=== PATIENT | female | born 1985 | race Caucasian/White ===

== ENCOUNTER 2017-03-27 18:10 | Emergency (ER) | payer MEDICAID ==
[2011-05-09 02:08] VITALS: BMI 32.3
[2017-03-27 18:53] LABS: BASOPHILS 0.3 % (0-2); HEMATOCRIT 37.7 % (36.0-48.0); HEMOGLOBIN 12.8 g/dL (12-16); IMMATURE GRANULOCYTES 0.2 % (0-5); LYMPHOCYTES 39.6 % (15-50); MCH 29.3 pg (26.0-34.0); MCV 86.3 fL (80.0-100.0); MEAN PLATELET VOLUME 9.8 fL (7.4-10.4); MONOCYTES 7.6 % (2-11); NEUTROPHILS 51.3 % (40-80); PLATELET COUNT 236 10x3/uL (130-400); RBC 4.37 10x6/uL (4.00-5.40); RDW 12.2 % (11.5-14.5); WBC 5.9 10x3/uL (4.8-10.8)
[2017-03-27 18:58] LABS: APPEARANCE CLEAR (CLEAR); BILIRUBIN NEGATIVE (NEGATIVE); COLOR STRAW (YELLOW); GLUCOSE NEGATIVE (NEGATIVE); KETONE NEGATIVE (NEGATIVE); NITRITE NEGATIVE (NEGATIVE); PH 5.5 (5.0-6.0); PROTEIN NEGATIVE (NEGATIVE); SPECIFIC GRAVITY 1.005 (1.005-1.020); UROBILINOGEN NORMAL (NORMAL)
[2017-03-27 19:00] LABS: HCG SERUM NEGATIVE (NEGATIVE)
[2017-03-27 19:03] LABS: ALBUMIN 3.6 g/dL (3.4-5.0); ALKALINE PHOSPHATASE 72 U/L (46-116); ALT (SGPT) 40 U/L (10-68); BILIRUBIN - TOTAL 0.28 mg/dL (0.2-1.3); CALC OSMOLALITY 274 mosm/kg (275-300); CALCIUM 8.9 mg/dL (8.5-10.1); CHLORIDE - SERUM 103 mmol/L (98-107); CREATININE - SERUM 0.6 mg/dL (0.6-1.3); GLUCOSE 91 mg/dL (74-106); POTASSIUM - SERUM 3.7 mmol/L (3.5-5.1); PROTEIN - SERUM 7.7 g/dL (6.4-8.2); SODIUM 139 mmol/L (136-145); UREA NITROGEN 5 mg/dL (7-18); eGFR NON AFRICAN AMERICAN > 90 mL/min (90-120)
== END 2017-03-27 19:31 | disposition home or self-care (01) ==
LOC: D.ER 18:10
PROVIDERS: Emergency Medicine
DX: R10.9 Unspecified abdominal pain (principal); K21.9 Gastro-esophageal reflux disease without esophagitis

== ENCOUNTER 2018-10-15 16:03 | Emergency (ER) | payer OTHER ==
[2018-10-15 16:13] VITALS: BMI 27.5
[2018-10-15 16:53] LABS: BASOPHILS 0.2 % (0-2); EOSINOPHILS 0.1 % (0-7); HEMATOCRIT 37.9 % (36.0-48.0); HEMOGLOBIN 13.2 g/dL (12-16); IMMATURE GRANULOCYTES 0.2 % (0-5); LYMPHOCYTES 12.1 % (15-50); MCH 28.9 pg (26.0-34.0); MCHC 34.8 g/dL (31.0-37.0); MCV 83.1 fL (80.0-100.0); MONOCYTES 6.6 % (2-11); NEUTROPHILS 80.8 % (40-80); PLATELET COUNT 276 10x3/uL (130-400); RBC 4.56 10x6/uL (4.00-5.40); RDW 12.7 % (11.5-14.5); WBC 9.6 10x3/uL (4.8-10.8)
[2018-10-15 17:17] LABS: ALBUMIN 4.2 g/dL (3.4-5.0); ANION GAP 14.3 mmol/L (8-16); BILIRUBIN - TOTAL 0.79 mg/dL (0.2-1.3); CALCIUM 9.4 mg/dL (8.5-10.1); CARBON DIOXIDE 27.3 mmol/L (21.0-32.0); POTASSIUM - SERUM 3.6 mmol/L (3.5-5.1); PROTEIN - SERUM 8.4 g/dL (6.4-8.2)
[2018-10-15 17:37] LABS: AMORPHOUS SEDIMENT >1+ /lpf (NONE SEEN); APPEARANCE CLOUDY (CLEAR); BILIRUBIN NEGATIVE (NEGATIVE); COLOR YELLOW (YELLOW); EPITHELIAL CELLS OCC /hpf (0-5); GLUCOSE NEGATIVE (NEGATIVE); HCG URINE NEGATIVE (NEGATIVE); KETONE NEGATIVE (NEGATIVE); NITRITE NEGATIVE (NEGATIVE); PROTEIN TRACE mg/dL (NEGATIVE); RED CELLS - URINE RARE /hpf (0-5); SPECIFIC GRAVITY 1.025 (1.005-1.020); UROBILINOGEN NORMAL (NORMAL); WHITE CELLS - URINE NSEEN /hpf (0-5)
[2018-10-15 17:48] LABS: UDS - AMPHET POSITIVE QUAL (NEGATIVE); UDS - BARB NEGATIVE QUAL (NEGATIVE); UDS - BENZO POSITIVE QUAL (NEGATIVE); UDS - COCAINE NEGATIVE QUAL (NEGATIVE); UDS - OPIATE NEGATIVE QUAL (NEGATIVE); UDS - PCP NEGATIVE QUAL (NEGATIVE); UDS - THC POSITIVE QUAL (NEGATIVE)
[2018-10-15 18:48] VITALS: BP 155/105
[2018-10-18 11:12] LABS: HEPATITIS C ANTIBODY >11.0 S/CO RAT (0.0-0.9)
== END 2018-10-15 18:48 | disposition home or self-care (01) ==
LOC: D.ER 16:03
PROVIDERS: Family Medicine
DX: F19.10 Other psychoactive substance abuse, uncomplicated (principal)

== ENCOUNTER 2018-10-17 06:14 | Emergency (ER) | payer OTHER ==
[2018-10-17 06:28] VITALS: BMI 27.5
[2018-10-17] MEDS ORDERED: VIBRAMYCIN 100100 MG PO (07:16)
[2018-10-17] MEDS ORDERED: BUPRENORPHINE HC8 MG SL (07:30)
[2018-10-17] MEDS ORDERED: VALIUM10 MG PO (07:31)
== END 2018-10-17 10:16 | disposition home or self-care (01) ==
LOC: D.ER
DX: T76.21XA Adult sexual abuse, suspected, initial encounter (principal)

== ENCOUNTER 2018-10-17 06:25 | Emergency (ER) | payer OTHER ==
[2018-10-17 06:28] VITALS: BMI 27.5
[2018-10-17 07:09] LABS: BASOPHILS 0.2 % (0-2); EOSINOPHILS 1.2 % (0-7); HEMATOCRIT 36.3 % (36.0-48.0); HEMOGLOBIN 12.7 g/dL (12-16); IMMATURE GRANULOCYTES 0.1 % (0-5); LYMPHOCYTES 19.7 % (15-50); MCH 28.9 pg (26.0-34.0); MCV 82.5 fL (80.0-100.0); MEAN PLATELET VOLUME 10.1 fL (7.4-10.4); MONOCYTES 9.2 % (2-11); NEUTROPHILS 69.6 % (40-80); PLATELET COUNT 255 10x3/uL (130-400); RDW 12.7 % (11.5-14.5); WBC 8.7 10x3/uL (4.8-10.8)
[2018-10-17] MEDS ORDERED: VIBRAMYCIN 100100 MG PO (07:16)
[2018-10-17] MEDS ORDERED: BUPRENORPHINE HC8 MG SL (07:30)
[2018-10-17] MEDS ORDERED: VALIUM10 MG PO (07:31)
[2018-10-17 07:43] LABS: ALBUMIN 3.9 g/dL (3.4-5.0); ALKALINE PHOSPHATASE 94 U/L (46-116); ALT (SGPT) 20 U/L (10-68); BILIRUBIN - TOTAL 0.88 mg/dL (0.2-1.3); CALC OSMOLALITY 269 mosm/kg (275-300); CALCIUM 8.9 mg/dL (8.5-10.1); CARBON DIOXIDE 29.1 mmol/L (21.0-32.0); CHLORIDE - SERUM 100 mmol/L (98-107); CREATININE - SERUM 0.8 mg/dL (0.6-1.3); GLUCOSE 99 mg/dL (74-106); POTASSIUM - SERUM 3.5 mmol/L (3.5-5.1); PROTEIN - SERUM 7.8 g/dL (6.4-8.2); SODIUM 136 mmol/L (136-145); UREA NITROGEN 6 mg/dL (7-18); eGFR NON AFRICAN AMERICAN 88 mL/min (90-120)
[2018-10-17 07:59] LABS: CREATINE KINASE 222 UL (21-215)
[2018-10-17 08:15] LABS: CKMB 1.4 U/L (0.0-3.6)
[2018-10-17 08:48] LABS: HCG URINE NEGATIVE (NEGATIVE)
[2018-10-17 08:54] LABS: UDS - AMPHET POSITIVE QUAL (NEGATIVE); UDS - BARB NEGATIVE QUAL (NEGATIVE); UDS - BENZO POSITIVE QUAL (NEGATIVE); UDS - COCAINE NEGATIVE QUAL (NEGATIVE); UDS - OPIATE NEGATIVE QUAL (NEGATIVE); UDS - PCP NEGATIVE QUAL (NEGATIVE); UDS - THC NEGATIVE QUAL (NEGATIVE)
[2018-10-17 09:00] LABS: APPEARANCE HAZY (CLEAR); BILIRUBIN NEGATIVE (NEGATIVE); COLOR STRAW (YELLOW); GLUCOSE NEGATIVE (NEGATIVE); KETONE NEGATIVE (NEGATIVE); NITRITE NEGATIVE (NEGATIVE); PROTEIN TRACE mg/dL (NEGATIVE); UROBILINOGEN NORMAL (NORMAL)
[2018-10-17 09:01] LABS: BACTERIA FEW /hpf (NONE SEEN); RED CELLS - URINE 0-5 /hpf (0-5)
[2018-10-17 10:15] VITALS: BP 137/89
== END 2018-10-17 10:16 | disposition home or self-care (01) ==
LOC: D.ER 06:25
PROVIDERS: Emergency Medicine; Family Medicine
DX: T76.21XA Adult sexual abuse, suspected, initial encounter (principal); T24.001A Burn of unspecified degree of unspecified site of right lower limb, except ankle and foot, initial encounter; T31.0 Burns involving less than 10% of body surface; X18.XXXA Contact with other hot metals, initial encounter; Y93.89 Activity, other specified; Y92.89 Other specified places as the place of occurrence of the external cause; L03.115 Cellulitis of right lower limb

== ENCOUNTER 2019-07-26 01:29 | Inpatient (IN) | payer OTHER ==
[~2019-07-26] VITALS: Ht 167.6 cm; Wt 88.5 kg
[2019-07-26] VITALS (8 sets, daily range): BP systolic 97–123; BP diastolic 54–82; Ht 167.6 cm; Wt 88.5 kg
[~2019-07-26 01:29] MED LIST: BUPRENORPHINE HC8 MG SL; VALIUM10 MG PO; VIBRAMYCIN 100100 MG PO
[2019-07-26] MEDS ORDERED: BUPRENORPHINE HC8 MG SL (02:12)
[2019-07-26] MEDS ORDERED: ZOLOFT50 MG PO (02:14)
[2019-07-26] MEDS ORDERED: OMEPRAZOLE20 M1 PO (02:15)
[2019-07-26 02:25] LABS: HEMATOCRIT 28.5 % (36.0-48.0); HEMOGLOBIN 9.3 g/dL (12-16); MCH 27.4 pg (26.0-34.0); MCHC 32.6 g/dL (31.0-37.0); MCV 83.8 fL (80.0-100.0); MEAN PLATELET VOLUME 9.3 fL (7.4-10.4); RBC 3.4 10x6/uL (4.00-5.40); RDW 14.8 % (11.5-14.5); WBC 8.9 10x3/uL (4.8-10.8)
[2019-07-26 02:31] LABS: BILIRUBIN NEGATIVE (NEGATIVE); GLUCOSE NEGATIVE (NEGATIVE); KETONE NEGATIVE (NEGATIVE); NITRITE NEGATIVE (NEGATIVE); SPECIFIC GRAVITY 1.015 (1.005-1.020); UROBILINOGEN NORMAL (NORMAL)
[2019-07-26 02:38] LABS: UDS - AMPHET NEGATIVE QUAL (NEGATIVE); UDS - BARB NEGATIVE QUAL (NEGATIVE); UDS - BENZO NEGATIVE QUAL (NEGATIVE); UDS - COCAINE NEGATIVE QUAL (NEGATIVE); UDS - OPIATE NEGATIVE QUAL (NEGATIVE); UDS - PCP NEGATIVE QUAL (NEGATIVE); UDS - THC NEGATIVE QUAL (NEGATIVE)
--- NOTE | 2019-07-26 05:23 | NUR ---
rec'd in room 1278 via bed from recovery, alert and oriented x 3, moving upper extremities but states lower extremities still feel "numb" lr infusing @125ml/hr via 18 guage left hand, fundus firm, u-1, lochia small, lut dsg d/i, scd's leonora lower extremities, denies discomfort at this time.
--- NOTE | 2019-07-26 06:32 | NUR ---
sitting up w/ infant, holding and attempting
--- NOTE | 2019-07-26 07:08 | NUR ---
RECEIVED PT SITTING UP IN BED. HOLDS INFANT WITH MUCH WARMTH SHOWN. VSS. HRRR WITHOUT AUDIBLE MURMUR. BBS CLEAR. BS X 4. ADOMEN SOFT/NON-DISTNDED. ABDOMINAL DRESSING DRY WITHOUT DRAINAGE NOTED. FUNDUS FIRM AT U/U. RUBRA LOCHIA MOD AMT. PERICARE DONE. PERIPAD CHANGED. NO CLOTS NOTED. NEG HOMANS' SIGN. PPP. NO EDEMA NOTED TO BLE. SCDS ON. PT C/O INCISIONAL PAIN OF "7" ON 0-10 PAIN SCALE. PIV OF NS WITH PITOCIN INFUSING AT 125 ML/HR. SITE CLEAR. QUIGLEY TO GRAVITY DRAINING DARK, YELLOW URINE. SR UP X 2. CALL LIGHT IN REACH.
--- NOTE | 2019-07-26 07:45 | NUR ---
DILAUDID MEAT SEAFOOD ASSOCIATE STARTED ORDERED. 0.4 MG LOADING DOSE ALSO GIVEN FOR PT C/O INCISIONAL PAIN OF "7" ON 0-10 PAIN SCALE. TORADOL 30 MG GIVEN SIVP OVER 2 MINUTES. PT INSTRUCTED ON MED. VERBALIZES UNDERSTANDING.
--- NOTE | 2019-07-26 08:20 | NUR ---
PT SITTING UP IN BED. STATES PAIN NOW "3" ON 0-10 PAIN SCALE. ASSISTED PT WITH TECHNIQUE. DEMONSTRATES UNDERSTANDING.
--- NOTE | 2019-07-26 10:22 | NUR ---
PT SITTING UP IN BED. VSS. ABDOMINAL DRESSING DRY WITHOUT DRAINAGE. DENIES NEEDS. FRESH ICE WATER PROVIDED. VISITOR POLICY EXPLAINED TO PT AND FAMILY MEMBER IN ROOM. ALL VERBALIZE UNDERSTANDING.
--- NOTE | 2019-07-26 12:00 | NUR ---
PT SITTING UP IN BED. CONSUMING CLEAR LIQUID DIET. ANI WELL.
[2019-07-26 12:19] LABS: BASOPHILS 0.1 % (0-2); EOSINOPHILS 0.5 % (0-7); HEMATOCRIT 26.2 % (36.0-48.0); HEMOGLOBIN 8.4 g/dL (12-16); IMMATURE GRANULOCYTES 0.4 % (0-5); LYMPHOCYTES 17.3 % (15-50); MCH 26.8 pg (26.0-34.0); MCHC 32.1 g/dL (31.0-37.0); MCV 83.7 fL (80.0-100.0); MEAN PLATELET VOLUME 9.4 fL (7.4-10.4); MONOCYTES 8.3 % (2-11); NEUTROPHILS 73.4 % (40-80); PLATELET COUNT 157 10x3/uL (130-400); RBC 3.13 10x6/uL (4.00-5.40); RDW 14.7 % (11.5-14.5); WBC 10.1 10x3/uL (4.8-10.8)
--- NOTE | 2019-07-26 14:18 | NUR ---
I/O COMPLETED. FUNDUS FIRM AT U/1. JOCELIN VALENTIN AMT. PERIPAD CHANGED. PERICARE DONE. ABDOMINAL DRESSING WITH 2 SMALL CIRCLED AREAS OF SEROSANGUINOUS DRAINAGE NOTED. PT REPOSITIONS PER SELF IN BED AFTER MUCH ENCOURAGEMENT TO DO SO. SCDS BACK ON BLE PT STATES TOOK THEM OFF BECAUSE "I WAS HOT". PT INSTRUCTED ON PURPOSE OF SCDS. VERBALIZES UNDERSTANDING. FRESH ICE PACK TO INCISION. ICE WATER, SPRITE AND CUP OF ICE PROVIDED TO PT AND ENCOURAGED TO CONSUME. PT QUICKLY FALLS BACK ASLEEP AFTER ASSESSMENT. SR UP X 2. CALL LIGHT IN REACH.
--- NOTE | 2019-07-26 15:27 | NUR ---
PT SITTING UP IN BED. VSS. SO AT BEDSIDE. PT DENIES C/O OR NEEDS.
--- NOTE | 2019-07-26 16:58 | NUR ---
PT SITTING UP IN BED. CONSUMING REGULAR DIET. PIV CONVERTED TO SALINE LOCK. PT INSTRUCTED TO NOTIFY NURSE WHEN FINISHED WITH MEAL. VERBALIZES UNDERSTANDING.
--- NOTE | 2019-07-26 18:15 | NUR ---
QUIGLEY DC'D WITH 350 ML OF DARK, YELLOW URINE NOTED IN BAG. PT OOB AND AMB TO BR. STEADY GAIT.
--- NOTE | 2019-07-26 19:00 | NUR ---
REPORT RECEIVED FROM JAMEL VELEZ
--- NOTE | 2019-07-26 19:09 | NUR ---
PT CALLS ON LIGHT. REQUESTS PAIN MED. C/O INCISIONAL PAIN OF "7" ON 0-10 PAIN SCALE. NORCO 10/325 GIVEN PO ORDERED. PT STATES "AM I GETTING TWO OF THOSE". PT INSTRUCTED ON MEDS ORDERED FOR PAIN; EMAR SHARED WITH PT. PT VERBALIZES UNDERSTANDING. STATES "HE SAID HE WAS GOING TO TAKE REALLY GOOD CARE OF ME".
--- NOTE | 2019-07-26 20:30 | NUR ---
PATIENT SITTING UP IN BED. STATES PAIN 8 OUT OF 10. ASSESSMENT DONE. RESPIRATIONS AT EASE. LUNG SOUNDS CLEAR IN ALL MCCOY. HEART REGULAR RATE AND RHYTHM. ABDOMEN SOFT, NON DISTENDED. BOWEL SOUNDS PRESENT IN ALL QUADRANTS. DRESSING NOTED TO ABDOMEN. NO NEW DRAINAGE NOTED TO DRESSING. FUNDUS FIRM, 2 BELOW UMBILICUS, MIDLINE. LOCHIA RUBRA. SCANT AMOUNT NOTED TO TRES PAD. NO EDEMA NOTED TO EXTREMITIES. IV SALINE LOCKED. IV TO L HAND. NO REDNESS OR EDEMA NOTED. EDUCATED PATIENT ON USE OF INCENTIVE SPIROMETER AND COUGHING AND DEEP BREATHING. PATIENT REPOSITIONED SELF IN BED. BED IN LOWEST POSITION, SIDE RAILS UP X 2, C/L AND WATER WITHIN REACH.
--- NOTE | 2019-07-26 21:22 | NUR ---
PATIENT SITTING UP IN BED. STATES PAIN 8 OUT OF 10. MOTRIN 600 MG ADMINISTERED PO. SUBUTEX 8 MG ADMINISTERED PO. PATIENT DENIES FURTHER NEEDS. BED IN LOWEST POSITION, SIDE RAILS UP X 2, C/L AND WATER WITHIN REACH.
--- NOTE | 2019-07-26 22:23 | NUR ---
DR MIMS CALLED PER PT REQUEST FOR SOMETHING DIFFERENT FOR PAIN. NEW ORDERS NOTED TO DISCONTINUE IBUPROFEN AND GIVE TORADOL 30MG PO Q6HRS. DISCUSSED THE CHANGE WITH THE PATIENT, STATES THAT THE OTHER NURSE TOLD HER SHE COULD PROBABLY HAVE A SHOT IN HER IV. PT TEACHING DONE AND PT INFORMED OF MD ORDERS. VERBAL AGREEMENT AT THIS TIME TO TRY THE TORADOL AND IF THAT DOESNT HELP WE WILL CALL THE MD BACK.
--- NOTE | 2019-07-26 22:56 | NUR ---
PATIENT GIVEN SANDWICH TRAY, PUDDING AND COKE PER REQUEST. PAINMEDICATION ADMINISTERED AT THIS TIME, SEE EMAR. NO FURTHER NEEDS IDENTIFIED. WILL CONTINUE TO MONITOR.
--- NOTE | 2019-07-26 23:45 | NUR ---
PT SLEEPING, EASILY AROUSED TO VERBAL. DENIES NEEDS. WILL CONTINUE TO MONITOR
--- NOTE | 2019-07-27 01:50 | NUR ---
PT SLEEPING AT THIS TIME WITH EVEN RESPIRATIONS. NOTED TO BE IN BED WITH PATIENT AND REMOVED TO CRIB PER ROSIE WRIGHT. PT DENIES NEEDS. WILL CONTINUE TO MONITOR
--- NOTE | 2019-07-27 03:35 | NUR ---
PT VOIDED WITHOUT DIFFICLTY, STATES THAT HER BLEEDING IS SMALL WITH NO CLOTS. PAIN MEIDCATION ADMINISTERED PER REQUEST AND MD ORDERS. SEE EMAR
[2019-07-27 05:28] LABS: BASOPHILS 0.1 % (0-2); EOSINOPHILS 1.4 % (0-7); HEMATOCRIT 23.7 % (36.0-48.0); IMMATURE GRANULOCYTES 0.5 % (0-5); LYMPHOCYTES 19.3 % (15-50); MCH 26.7 pg (26.0-34.0); MCHC 31.6 g/dL (31.0-37.0); MCV 84.3 fL (80.0-100.0); MEAN PLATELET VOLUME 9.2 fL (7.4-10.4); MONOCYTES 8.8 % (2-11); NEUTROPHILS 69.9 % (40-80); PLATELET COUNT 144 10x3/uL (130-400); RBC 2.81 10x6/uL (4.00-5.40)
[2019-07-27 05:48] LABS: WBC 7.4 10x3/uL (4.8-10.8)
--- NOTE | 2019-07-27 05:48 | NUR ---
LAB CALLED WITH CRITICAL HEMOGLOBIN OF 7.5
[2019-07-27 05:49] LABS: HEMOGLOBIN 7.5 g/dL (12-16)
[2019-07-27 05:51] VITALS: BP 109/74
--- NOTE | 2019-07-27 05:51 | NUR ---
VITAL SIGNS TAKEN, PT DENIES SOB,DIZZINESS OR PAIN AT THIS TIME. FUNDUS FIRM, U-1/ML. BLEEDING REMAINS SCANT, NO CLOTS NOTED.
--- NOTE | 2019-07-27 06:00 | NUR ---
DR MIMS CALLED TO REPORT HEMOGLOBIN RESULTS, NO ANSWER.
--- NOTE | 2019-07-27 06:01 | NUR ---
DR MIMS CALLED BACK, LAB RESULTS REPORTED AND NEW ORDERS NOTED TO TRANSFUSE TWO UNITS PRBC'S
[2019-07-27 06:40] VITALS: BP 141/70
--- NOTE | 2019-07-27 06:40 | NUR ---
PTS NAME, , BLOOD TYPE, BLOOD BAND NUMBER, UNIT NUMBER, UNIT TYPE AND EXPIRATION ALL VERIFIED BY ROSIE RAJANC AND CAITYRN AT THIS TIME. VITAL SIGNS TAKEN AND RECORDED. PT TEACHING DONE AND PT PREMEDICATED WITH TYLENOL AND BENADRYL, SEE JUL.
--- NOTE | 2019-07-27 06:41 | NUR ---
BLOOD TRANSFUSION STARTED AT THIS TIME AT 50ML/HR. PT TEACHING DONE ON S/S OF TRANSFUSION REACTION. ALL QUESTIONS ANSWERED AND PT VERBALIZES UNDERSTANDING.
[2019-07-27 06:55] VITALS: BP 115/70
--- NOTE | 2019-07-27 06:55 | NUR ---
PATIENT DENIES ANY S/S OF TRANSFUSION REACTION, IV RATE CHANGED TO 75ML/HR. VS WNL.
[2019-07-27 07:11] LABS: RAPID PLASMA REAGIN Non Reactive (Non Reactive)
--- NOTE | 2019-07-27 07:19 | NUR ---
BEDSIDE SHIFT REPORT COMPLETED. PT STANDING UP AT BEDSIDE FEEDING INFANT. SHE RATES PAIN AT 7/10 AND REQUEST HER SUBUTEX NOW. PRBC INFUSION INCREASED TO 200ML/HR.
--- NOTE | 2019-07-27 07:45 | NUR ---
DR AWAD AT BEDSIDE, ORDERS RECEIVED TO D/C WILLIAM AND GIVE PERCOCET 10/325MG PO EVERY 4HOURS NEEDED FOR PAIN.
[2019-07-27 08:00] VITALS: BP 111/65
--- NOTE | 2019-07-27 08:00 | NUR ---
SUBUTEX GIVEN PO SCANNED TO EMAR. FUNDUS FIRM AT U/1 WITH SCANT BLEEDING NOTED. BIKINI INCISION CLEAN AND DRY WITH TRUDI IN PLACE. ADDITIONAL TRES PADS PLACED IN BATHROOM. SIDE RAILS UP X 2 WITH CALL LIGHT IN REACH. IN CRIB AT BEDSIDE.
--- NOTE | 2019-07-27 08:40 | NUR ---
1ST UNIT OF PRBC COMPLETED AND NOW FLUSHING WITH NS.
--- NOTE | 2019-07-27 11:00 | NUR ---
2ND UNIT PRBC TRANSFUSION STARTED, VERIFIED WITH Silvio COSTELLO RN. PT DENIES PAIN OR DISCOMFORT AT THIS TIME. IN CRIB AT BEDSIDE AND SPOUSE PRESENT.
--- NOTE | 2019-07-27 12:30 | NUR ---
PT RATES PAIN AT 2/10, SHE IS SITTING UP ON SIDE OF BED EATING LUNCH. LARGE CUP OF ICE WITH COLA PROVIDED REQUESTED.
--- NOTE | 2019-07-27 13:30 | NUR ---
75ML ADDED TO BLOOD TRANSFUSION VOLUME TO INFUSE. PT DENIES PAIN OR DISCOMFORT AT THIS TIME. CALL LIGHT IN REACH.
--- NOTE | 2019-07-27 14:00 | NUR ---
2ND UNIT PRBC INFUSION COMPLETED AND FLUSHED WITH 100ML NS. PT TOLERATED WELL, IV SALINE LOCKED. SHE RATES PAIN AT 2/10, TURNS SELF TO HER LEFT SIDE AND REQUEST THAT LIGHTS BE TURNED DOWN. INFANT IN CRIB AT BEDSIDE.
--- NOTE | 2019-07-27 15:45 | NUR ---
pt calls out with request for pain med. this rn to bedside with meds given as charted, rates pain at 7/10. infant in crib at bedside with spouse on couch. call light in reach.
--- NOTE | 2019-07-27 18:00 | NUR ---
called to room. pt states that her IV came out while she was showering. Site is not red or swollen and pt states her understanding that if was needed IV would need to be restarted. Pt did not notify nurse prior to getting in to the shower. Denies any needs at this time.
--- NOTE | 2019-07-27 19:09 | NUR ---
RECEIVED SHIFT REPORT FROM LUISITO LEGER, RN, PT SITTING ON COUCH, HOLDING , INFORMED PT THAT I WILL BE BACK SHORTLY TO DO ASSESSMENT AND VS, PT VERBALIZES UNDERSTANDING, REQUESTS PAIN MED WHEN DUE, INFORMED PT THAT I WILL BRING IT BACK WITH ME, PT VERBALIZES UNDERSTANDING, DENIES NEEDS AT THIS TIME
[2019-07-27 19:53] VITALS: BP 142/74
--- NOTE | 2019-07-27 19:53 | NUR ---
ASSESSMENT PER FLOW SHEET, VS OBTAINED, FF, ML, U/1, LITE BLEEDING WITH NO CLOTS NOTED, BIKINI INC WITH TRUDI CDI WITH TRES PAD OVER INC FOR COMFORT AND MOISTURE CONTROL, PT REPORTS FLATUS, NO BM AND VOIDING WITH NO DIFFICULTY, ADM PERCOCET PER MD ORDERS, SEE EMAR, INFORMED PT THAT I WILL BE MOVING HER TO [facility] SHORTLY, PT AND FOB VERBALIZES UNDERSTANDING, PT REQUESTED AND SERVICE COLA, DINNER TRAYS REMOVED, PT'S SON IS HOLDING AT THIS TIME
[2019-07-27 20:14] LABS: BASOPHILS 0.1 % (0-2); EOSINOPHILS 0.7 % (0-7); IMMATURE GRANULOCYTES 1.1 % (0-5); LYMPHOCYTES 14.1 % (15-50); MCH 27.7 pg (26.0-34.0); MCHC 32.6 g/dL (31.0-37.0); MEAN PLATELET VOLUME 9.5 fL (7.4-10.4); MONOCYTES 7.8 % (2-11); NEUTROPHILS 76.2 % (40-80); PLATELET COUNT 166 10x3/uL (130-400); RDW 14.4 % (11.5-14.5)
--- NOTE | 2019-07-27 20:45 | NUR ---
PT TRANSFERRED VIA AMB TO ROOM 1220 PER RASHMI DAVID RN
[2019-07-27 20:46] LABS: HEMATOCRIT 30.7 % (36.0-48.0); RBC 3.61 10x6/uL (4.00-5.40); WBC 9.8 10x3/uL (4.8-10.8)
--- NOTE | 2019-07-27 21:06 | NUR ---
PT UP IN ROOM, ADM SUBUTEX PO PER MD ORDERS, SEE EMAR, PT REQUESTED AND SERVED COLA, DENIES FURTHER NEEDS, INFANT IN OPEN CRIB CART, FOB AND OTHER CHILD IN ROOM
--- NOTE | 2019-07-27 22:10 | NUR ---
PT UP IN ROOM, PROVIDED EXTRA PADS, PT RATES PAIN 4/10, REQUESTED AND SERVED COLA, DENIES FURTHER NEEDS, IN OPEN CRIB CART
[2019-07-28 00:12] VITALS: BP 126/78
--- NOTE | 2019-07-28 00:12 | NUR ---
PT AUCTION CLERK LIGHT, REQUESTS PAIN MED, THIS RN TO ROOM, VS OBTAINED, ADM PERCOCET PER MD ORDERS, SEE EMAR, PT DENIES FURTHER NEEDS, BED IN LOW POSITION, SIDE RAILS X 2, CALL LIGHT IN REACH, TO NSY VIA OPEN CRIB CART PER THIS RN
--- NOTE | 2019-07-28 02:17 | NUR ---
PT RESTING WITH EYES CLOSED, RESP QUIET, NO DISTRESS NOTED, LEFT UNDISTURBED AT THIS TIME, BED IN LOW POSITION, SIDE RAILS X 2, CALL LIGHT IN REACH
[2019-07-28 04:16] VITALS: BP 120/80
--- NOTE | 2019-07-28 04:16 | NUR ---
PT RESTING WITH EYES CLOSED, AROUSES TO SOFT VERBAL STIMULATION, VS OBTAINED, ADM PERCOCET PER MD ORDERS, SEE EMAR, WITH FRESH H20, PT DENIES FURTHER NEEDS
--- NOTE | 2019-07-28 05:41 | NUR ---
PT RESTING WITH EYES CLOSED, RESP QUIET, NO DISTRESS NOTED, LEFT UNDISTURBED AT THIS TIME
--- NOTE | 2019-07-28 05:55 | NUR ---
INFANT TO ROOM VIA OPEN CRIB CART PER RUBI SOUZA RN
[2019-07-28 07:35] VITALS: BP 123/88
--- NOTE | 2019-07-28 07:43 | NUR ---
ENTERED ROOM FOR ASSESSMENT. EYES CLOSED- RESTING. OPENS EYES WHEN NAME IS CALLED. ASSESSMENT DONE. WHEN QUESTIONED ABOUT PAIN -RATES PAIN AN 8 ON SCALE OF 0-10. ABD- BIKINI LINE INCISION WITH TRUDI- WNL- NO REDNESS NO DRAINAGE. STATES SHE WOULD LIKE PAIN MEDICATION WHEN SETH HAVE IT- STATES THE NURSE BEFORE WAS GOOD TO BRING IT EVERY 4 HOURS. ICE WATER GIVEN.
--- NOTE | 2019-07-28 08:15 | NUR ---
UP AND ABOUT IN ROOM. REQUESTING PAIN MEDICATION. RATES PAIN AN 8 ON SCALE OF 0-10. MED GIVEN.
--- NOTE | 2019-07-28 09:04 | NUR ---
SITTING ON SIDE OF BED- FEEDING .
--- NOTE | 2019-07-28 11:34 | NUR ---
unable to pull vaccine records from ar website. pt states that she has had t-dap vaccine within 2 years and refuses vaccine also refuses flu shot.
--- NOTE | 2019-07-28 12:15 | NUR ---
pt ambulates to desk with in arms. instructed that nursery/pedi request that infant be moved in crib. pt does not respond. pt asks "is it about time for medicine?" states she would like pain medication- rates pain 8 on scale of 0-10. pt states well "i forgot to feed her so i am going back"
--- NOTE | 2019-07-28 14:49 | NUR ---
standing at sink- putting on makeup. vs done- discussed pt discharge with room in option- pt refuses- states she does not have her subutex - informed that would speak with dr riggins. while putting bp cuff on arm noted that pt has a square clearish patch on her upper arm (like medication/nicotine) patch. ask pt what it was and she said "none of your business"
--- NOTE | 2019-07-28 16:21 | NUR ---
phoned dr riggins to inform him that pt does not want to discharge to room in today and also informed him of patch on pt arm and refusal to let nurse know what it is. dr riggins requests that again attempt to find out what the patch is and that pt could stay until tomorrow.
--- NOTE | 2019-07-28 16:30 | NUR ---
discussed patch with pt and reason nurse and md would need to know what it is- pt states she will tell md but not nurse and ask if md is coming to room. spoke with dr riggins and he states that he is busy at this moment and again to explain the importance of knowing the medication patch. discussed ths with pt and she states it is a nicotine patch "i like to vape" this nurse views patch and it is a nicotine patch. pt does not explain why she did not want nurse to know what was. pt requesting pain medication- rates pain an 8 on scale of 0-10.
--- NOTE | 2019-07-28 18:40 | NUR ---
PT STATES SHE IS READY TO TRANSFER TO ROOM ON L&D. PT AND INFANT TRANSFERED TO ROOM 1278.
--- NOTE | 2019-07-28 19:18 | NUR ---
PT STANDING IN THE HALLWAY HOLDING IN HER ARMS. PT TEACHING DONE ON HOSPITAL POLICY AND THIS RN REQUESTED THAT PT PUT THE INFANT IN THE CRIB TO COME OUT IN THE HALLWAY OR TO GO BACK INTO HER ROOM. PT STATES THAT SHE JUST WANTS STAND OUTSIDE THE DOOR. INFORMED HER THAT SHE COULD IF SHE WOULD PUT THE IN THE CRIB. PT STATES, OH I DIDNT KNOW AND WENT BACK INTO HER ROOM.
[2019-07-28 19:33] VITALS: BP 132/78
--- NOTE | 2019-07-28 19:33 | NUR ---
PT REC'D SITTING ON SIDE OF BED AT THIS TIME WITH IN ARMS. INFNAT UNCOVERED AT THIS TIME. PT INFORMED OF NEED TO ASSESS. PT UP TO WARP INFANT. PT HOLDING WITH ONE ARM AND LEANS FORWARD TO PUT INFANT IN CRIB. NURSE ASSISTED PATIENT TO PUT IN THE CRIB. PT INAPPRORIATELY LAUGHING UNCONTROLLABLY WHEN DISCUSSING SCHOOL CLOSURES AND [employer] VIRUS. VSS. INCISION INTACT WITH TRUDI. NO S/S OF INFECTION NOTED. SMALL LOCHIA NOTED AT THIS TIME. PT SLOW TO RESPOND TO QUESTIONS. WANDERING CONVERSATION. NO ACUTE DISTRESS NOTED AT THIS TIME. CALL LIGHT IN PT REACH. Denise DE JESUS RN
--- NOTE | 2019-07-28 20:36 | NUR ---
PT MEDICATED WITH SUBUTEX SL AND PERCOCET 10 FOR PAIN LEVEL OF 7/10. WILL MONITOR. Denise DE JESUS RN
--- NOTE | 2019-07-28 21:45 | NUR ---
PT REC'D SITTING ON THE BED AT THIS TIME. STATES THAT PAIN IS A 6/10.WILL CONTINUE TO MONITOR. Denise DE JESUS RN
--- NOTE | 2019-07-28 23:37 | NUR ---
PT REC'D IN BED AT THIS TIME. REQUESTING SOMETING TO DRINK. PT GIVEN SODAS AT THIS TIME. Denise DE JESUS RN
[2019-07-29 00:41] VITALS: BP 140/85
--- NOTE | 2019-07-29 00:44 | NUR ---
PT MEDICATED AT THIS TIME. PAIN OF 11/16. Denise DE JESUS RN
--- NOTE | 2019-07-29 01:55 | NUR ---
PT IN THE BATHROOM AT [facility]. STATES THAT PAIN IS "FINE". NO DISTRESS NOTED. Denise DE JESUS RN
--- NOTE | 2019-07-29 05:07 | NUR ---
pt medicated for pain at this time. jay mccallum rn
--- NOTE | 2019-07-29 06:45 | NUR ---
pt rec'd sitting on side of bed at this time. no distress noted. jay mccallum rn
[2019-07-29 07:37] VITALS: BP 140/83
--- NOTE | 2019-07-29 07:37 | NUR ---
AM ASSESSMENT COMPLETED. PT SITTING ON SIDE OF BED HOLDING ON ENTRY TO ROOM. PT MAKES EYE CONTACT, DENIES NEEDS OR CONCERNS AT THIS TIME. REVIEWED PLAN OF CARE STATES UNDERSTANDING. CALL LIGHT IN EASY REACH. WILL CONTINUE TO MONITOR.
--- NOTE | 2019-07-29 09:15 | NUR ---
pt requests both subutex and prn percocet, states "my pain is an 8 and i need them now." same provided. nad noted.
--- NOTE | 2019-07-29 09:53 | NUR ---
DR AWAD CALLED L&D. ORDERS RECEIVED TO DC PATIENT, SEPTEMBER ROOM-IN PATIENT.
[2019-07-29] MEDS ORDERED: PERCOCET 10-321 EAC1 PO (09:59)
[2019-07-29] MEDS ORDERED: MOTRIN600 MG PO (10:00)
--- NOTE | 2019-07-29 10:19 | NUR ---
PT USING PHONE TO CALL NURSE'S DESK TO ASK FOR COLA, SAME PROVIDED. REVIEWED MD ORDER FOR DISCHARGE TO ROOMING IN STATUS. PT STATES DESIRE TO WAIT FOR TO COME TO HOSPITAL BEFORE REVIEWING DISCHARGE INSTRUCTIONS. ASSURED PT THIS RN WOULD REVIEW DISCHARGE INSTRUCTIONS WITH PT AND PT SPOUSE AT SAME TIME PER REQUEST. NAD NOTED. WILL MONITOR.
--- NOTE | 2019-07-29 11:30 | NUR ---
patient discharge instructions reviewed with patient and patient spouse, handouts provided for each topic of discussion, hard copy prescription and follow up appointment card provided, rooming in instructions reviewed with pt and pt spouse and required forms completed with copy provided to nursery staff. pt and spouse voice understanding of all information. to nursery at this time. pt and pt spouse transferred to room 1223-A for rooming in-discharged from unit. nad noted at this time.
== END 2019-07-29 11:30 | disposition home or self-care (01) | DRG 788 ==
LOC: D.LDO 01:29 → D.LD 02:16 → D.WS 07-27 20:45 → D.LD 07-28 18:45
PROVIDERS: ADMIT Obstetrics & Gynecology; ATTEND Obstetrics & Gynecology
PROC: 10D00Z1 Extraction of Products of Conception, Low, Open Approach (ICD-10-PCS; principal; 2019-07-26 03:57)
DX: O32.1XX0 Maternal care for breech presentation, not applicable or unspecified (principal); Z3A.38 38 weeks gestation of pregnancy; Z37.0 Single live birth

== ENCOUNTER 2019-12-21 12:08 | Emergency (ER) | payer OTHER ==
[~2019-12-21] VITALS: Ht 167.6 cm; Wt 77.3 kg
[~2019-12-21 12:08] MED LIST changes: +MOTRIN600 MG PO; +OMEPRAZOLE20 M1 PO; +PERCOCET 10-321 EAC1 PO; +ZOLOFT50 MG PO
[2019-12-21 13:58] VITALS: Ht 167.6 cm; Wt 77.3 kg
[2019-12-21] MEDS ORDERED: ZPAK PO (14:06)
[2019-12-21] MEDS ORDERED: STERAPRED 5MG 65 M1 PO (14:06)
== END 2019-12-21 14:50 | disposition home or self-care (01) ==
LOC: D.ER 12:08
DX: J02.9 Acute pharyngitis, unspecified (principal); J06.9 Acute upper respiratory infection, unspecified; F32.9 Major depressive disorder, single episode, unspecified; K29.70 Gastritis, unspecified, without bleeding